=== PATIENT | female | born 1990 | race Caucasian/White ===

== ENCOUNTER 2016-09-02 05:05 | Emergency (ER) | payer MEDICAID ==
[2016-09-02] MEDS ORDERED: OPTIRAY 350 100 ML VIAL HMH IV ONE (05:06)
[2016-09-02] MEDS ORDERED: SODIUM CHLORIDE 0.9% 1,000 ML ONE (08:31)
== END 2016-09-02 09:46 | disposition home or self-care (01) ==
LOC: ER 05:05
DX: N30.00 Acute cystitis without hematuria (principal)
CPT/HCPCS: 36415; 74177; 80053; 81001; 83690; 84703; 85025; 87088; 96360

== ENCOUNTER 2016-09-13 20:16 | Emergency (ER) | payer MEDICAID ==
[2016-09-13] MEDS ORDERED: METHYLPRED SOD SUCC 125 MG/2 ML VIAL ONE (20:22)
[2016-09-13] MEDS ORDERED: DIPHENHYDRAMINE 50 MG/ML VIAL ONE (20:22)
[2016-09-13] MEDS ORDERED: FAMOTIDINE 20 MG INJ ONE (20:23)
== END 2016-09-13 21:39 | disposition home or self-care (01) ==
LOC: ER 20:16
DX: R60.0 Localized edema (principal)
CPT/HCPCS: 96374; 96375